=== PATIENT | female | born 1950 | race Caucasian/White ===

== ENCOUNTER → 2016-06-22 | Outpatient (CLI) | payer BC ==
[~2016-06-22] MED LIST: DULO30CA2 PO
[2016-06-22 14:58] LABS: BASO % 0 % (0-3); EOS % 1 % (0-3); HEMATOCRIT 39.3 % (36.0-47.0); HEMOGLOBIN 13.1 g/dL (12.0-15.5); LYMPH # 2.2 x10^3/uL (1.0-4.8); LYMPH % 31 % (24-48); MEAN CORPUSCULAR HEMOGLOBIN 30 pg (25-35); MEAN CORPUSCULAR HGB CONC 33 g/dL (31-37); MEAN CORPUSCULAR VOLUME 90 fL (79-100); MONO % 9 % (0-9); NEUT % 59 % (31-73); PLATELET COUNT 242 x10^3/uL (140-400); RED BLOOD COUNT 4.35 x10^6/uL (3.50-5.40); RED CELL DISTRIBUTION WIDTH 13.4 % (11.5-14.5); WHITE BLOOD COUNT 7.2 x10^3/uL (4.0-11.0)
[2016-06-22 15:18] LABS: ALBUMIN 3.6 g/dL (3.4-5.0); ALBUMIN/GLOBULIN RATIO 1.1 (1.0-1.7); CALCIUM 8.9 mg/dL (8.5-10.1); CREATININE 0.8 mg/dL (0.6-1.0); GFR 72.2; POTASSIUM 3.9 mmol/L (3.5-5.1); TOTAL BILIRUBIN 0.3 mg/dL (0.2-1.0); TOTAL PROTEIN 6.8 g/dL (6.4-8.2)
== END | disposition home or self-care (01) ==
LOC: SURGPAT 13:32
PROVIDERS: ATTEND Neurological Surgery
DX: Z01.812 Encounter for preprocedural laboratory examination (principal)
CPT/HCPCS: 36415; 80053; 85027; 87641

== ENCOUNTER 2016-06-29 05:58 | Observation (INO) | payer BC ==
--- NOTE | 2016-06-28 00:51 | PREOP HP ---
Andres Tee RN dictating for Dr. Sigifredo Aly. DATE OF SURGERY: 06/29/2016 HISTORY OF PRESENT ILLNESS: The patient is a pleasant 66-year-old who is having difficulty with numbness and weakness in her right leg. She said that she has fallen. She said that the problem began in 2010 and has been gradually worsening. Pain is not particularly a problem. The principal issue is regarding her left distal leg and foot. She says she noticed diffuse weakness in her leg and foot drop, which is worse when she is tired. In the morning, she says she feels as though her strength is better and as the day goes on she worsens. I do believe she was seen by neurology who felt that her problem was proximal to the fibular head. PAST MEDICAL HISTORY: No medical history. PAST SURGICAL HISTORY: Lumbar surgery 2005. FAMILY HISTORY: Cancer, hypertension. 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 . Nonsmoker. Does not drink alcohol. ALLERGIES: No known drug allergies. CURRENT MEDICATIONS: Cymbalta. REVIEW OF SYSTEMS: A 12-point review of systems was obtained and is noncontributory except for that mentioned above. PHYSICAL EXAMINATION: NEUROSURGERY EXAMINATION: GENERAL APPEARANCE: Alert, pleasant, no acute distress. HEAD: Normocephalic and atraumatic. SKIN: Warm and dry. MUSCULOSKELETAL: Lumbar paraspinal muscle bulk is normal, restricted range of motion of lumbar spine, etej-oq-oozlcjxw tenderness of lower lumbar spine with palpation, normal range of motion of the lower extremities bilaterally. EXTREMITIES: No clubbing, cyanosis, or edema. NEUROLOGIC: Alert and oriented x 3, normal recent and remote memory, strength 5/5 in bilateral lower extremities except there is weakness of dorsiflexion on the right side, sensory was intact to light touch in the lower extremities bilaterally except for decrease with light touch involving the lateral leg and dorsum of the right foot, reflexes were present and symmetric in bilateral lower extremities, negative straight leg raising bilaterally, normal gait. IMAGING: I reviewed a lumbar MRI scan. On that study, there appears to be compression spinal cord from primarily a dorsal lateral position at T11-12. There is T2 hypersensitivity within the cord at this level. ASSESSMENT/ PLAN: I believe the problem at T11-12 is responsible for her weakness. My recommendation is that she undergo lumbar laminectomy at this level to fully decompress the region and see if we can obtain some improvement in her condition. I did discuss this with her in detail. I further explained that this may not help. She understands surgery and the risks. She would like to go ahead. SIGIFREDO ALY MD DR: ANTONETTE/adolfo JOB#: [id number] / [id number] TERESA
[2016-06-29] VITALS (11 sets, daily range): BP systolic 93–112; BP diastolic 50–63
[~2016-06-29] VITALS: Ht 165.1 cm; Wt 87.1 kg
[2016-06-29] MEDS ORDERED: VANCOMYCIN 1GM IVPB FOR OMNI 250 ML IV ONE (06:00)
[2016-06-29] MEDS ORDERED: GELATIN SPONGE SIZE 100. ONE (06:44)
[2016-06-29] MEDS ORDERED: KETOROLAC 60 MG/2 ML SYRINGE FOR OR. ONE (06:44)
[2016-06-29] MEDS ORDERED: BUPIVAC MPF-EPI 0.5%-1:200000 30 ML VIAL. ONE (06:44)
[2016-06-29] MEDS ORDERED: THROMBIN 20,000 UNIT SPRAY.SYRN KIT TP ONE (06:44)
[2016-06-29] MEDS ORDERED: ONDANSETRON PF 4 MG/2 ML VIAL. IV PRN ×2 (07:00→13:15)
[2016-06-29] MEDS ORDERED: IV RINGERS,LACTATED 1000ML 1,000 ML IV SCH (07:00)
[2016-06-29] MEDS ORDERED: HYDROMORPHONE 2 MG/ML VIAL. IV PRN (07:00)
[2016-06-29] MEDS ORDERED: FENTANYL PF 100 MCG/2 ML VIAL. IV PRN ×3 (07:00→13:15)
[2016-06-29] MEDS ORDERED: PROCHLORPERAZINE 10 MG/2 ML VIAL. IV PRN (07:00)
[2016-06-29] MEDS ORDERED: LIDOCAINE 1% 1 ML SYRINGE. ID PRN (07:00)
[2016-06-29] MEDS ORDERED: MORPHINE SULFATE 2 MG/ML DISP.SYRIN. IV PRN (07:00)
--- NOTE | 2016-06-29 07:52 | RAD ---
Indication: Thoracic stenosis. Axial imaging through the lower thoracic and lumbar spine was performed without contrast. Sagittal and coronal reformations were also performed. Curvature and alignment is normal. The vertebral body heights are well-maintained. No acute compression fracture is detected. Generalized degenerative disc disease is identified in the lower thoracic and lumbar spine with variable disc space narrowing and marginal osteophyte formation. Evaluation of the integrity of the central canal is difficult on nonmyelographic CT. There does appear to be suggestion of central stenosis at the T11-12 level due to a combination of facet changes as well as broad-based disc/osteophyte complex. There also appears to be significance central canal stenosis L4-5 level due to broad-based disc/osteophyte complex and ligamentous thickening as well as hypertrophic facet changes. The paraspinous tissues are unremarkable. Impression: Generalized lower thoracic and lumbar spondylosis. No acute compression fracture is seen. There appears to be central canal stenosis T11-12 as well as L4-5 levels. MRI may be useful for further evaluation, if clinically indicated. PQRS Compliance Statement: One or more of the following individualized dose reduction techniques were utilized for this examination: 1. Automated exposure control 2. Adjustment of the mA and/or kV according to patient size 3. Use of iterative reconstruction technique
[2016-06-29] MEDS ORDERED: ONDANSETRON PF 4 MG/2 ML VIAL. ONE (07:57)
[2016-06-29] MEDS ORDERED: DEXAMETHASONE SOD PHOS 20 MG/5 ML VIAL. ONE (07:57)
[2016-06-29] MEDS ORDERED: FENTANYL PF 100 MCG/2 ML VIAL. ONE (07:57)
[2016-06-29] MEDS ORDERED: REMIFENTANIL 2 MG VIAL. IV ONE (07:57)
[2016-06-29] MEDS ORDERED: ROCURONIUM 50 MG/5 ML VIAL. ONE (07:57)
[2016-06-29] MEDS ORDERED: LIDOCAINE 2% 100 MG/5 ML DISP.SYRIN. ONE (07:57)
[2016-06-29] MEDS ORDERED: PROPOFOL 20 ML IV ONE (07:57)
[2016-06-29] MEDS ORDERED: PROPOFOL 50 ML IV ONE ×3 (07:57→12:02)
[2016-06-29] MEDS ORDERED: MIDAZOLAM HCL 2 MG/2 ML VIAL. ONE (07:58)
[2016-06-29] MEDS ORDERED: PHENYLEPHRINE 10 MG/ML VIAL. ONE (08:02)
[2016-06-29] MEDS ORDERED: SCOPOLAMINE 1.5MG PATCH. TD ONE ×3 (08:05→08:15)
[2016-06-29] MEDS ORDERED: GLYCOPYRROLATE 1 MG/5 ML VIAL. ONE (09:01)
[2016-06-29] MEDS: BACITRACIN 50,000 UNIT in IV NORMAL SALINE 1000ML BAG 1,000 ML IRR ONE ×2 (09:39→10:04)
[2016-06-29] MEDS ORDERED: EPHEDRINE PF IN SALINE 50 MG/5 ML DISP.SYRIN. IV ONE (10:27)
[2016-06-29] MEDS ORDERED: FAMOTIDINE 20 MG/2 ML VIAL ONE (10:27)
[2016-06-29] MEDS ORDERED: REMIFENTANIL 1 MG VIAL. IV ONE (12:12)
[2016-06-29] MEDS ORDERED: 0.9 % SODIUM CHLORIDE 50 ML VIAL. IJ ONE (12:13)
[2016-06-29] MEDS ORDERED: DESFLURANE > 120 MINUTES IH ONE (12:57)
[2016-06-29] MEDS ORDERED: NEOSTIGMINE METHYLSULFATE 5 MG/5 ML SYRINGE. ONE (12:58)
[2016-06-29] MEDS ORDERED: CYCLOBENZAPRINE 10 MG TABLET. PO PRN (13:15)
[2016-06-29] MEDS ORDERED: DIPHENHYDRAMINE HCL 25 MG CAPSULE PO PRN (13:15)
[2016-06-29] MEDS ORDERED: ACETAMINOPHEN 325 MG TABLET. PO PRN (13:15)
[2016-06-29] MEDS ORDERED: DIPHENHYDRAMINE 50 MG/ML VIAL IV PRN (13:15)
[2016-06-29] MEDS ORDERED: MAG HYDROX/ALUMINUM HYDROX/SMC 30 ML ORAL.SUSP PO PRN (13:15)
[2016-06-29] MEDS ORDERED: HYDROCODONE/APAP 7.5/325MG TABLET. PO PRN (13:15)
[2016-06-29] MEDS ORDERED: CALCIUM CARBONATE 500 MG TAB.CHEW PO PRN (13:15)
[2016-06-29] MEDS ORDERED: ZOLPIDEM 5 MG TABLET. PO PRN (13:15)
[2016-06-29] MEDS ORDERED: MAGNESIUM HYDROXIDE 2,400 MG/30 ML ORAL.SUSP. PO PRN (13:15)
[2016-06-29] MEDS ORDERED: 0.9 % SODIUM CHLORIDE 10 ML DISP.SYRIN. IV PRN (13:15)
[2016-06-29] MEDS: FENTANYL PF 100 MCG/2 ML VIAL. IV PRN ×2 (13:47→14:03)
[2016-06-29] MEDS: POTASSIUM CL 20MEQ D5-0.45NACL 1,000 ML IV SCH (15:00)
[2016-06-29] MEDS: DOCUSATE SODIUM 100 MG CAPSULE PO SCH (22:05)
[2016-06-29] MEDS: HYDROCODONE/APAP 7.5/325MG TABLET. PO PRN ×3 (22:06→23:23)
[2016-06-30 03:00] VITALS: BP 102/60
[2016-06-30] MEDS: POTASSIUM CL 20MEQ D5-0.45NACL 1,000 ML IV SCH (04:20)
[2016-06-30 06:35] VITALS: BP 93/55
[2016-06-30] MEDS: DOCUSATE SODIUM 100 MG CAPSULE PO SCH (08:16)
[2016-06-30] MEDS ORDERED: DULOXETINE HCL 30 MG CAPSULE.DR. PO SCH (09:00)
--- NOTE | 2016-06-30 11:07 | DISCH ---
DISCHARGE INSTRUCTIONS Condition on Discharge Condition on Discharge: Stable Activity After Discharge Activity Instructions for Disc: Activity as tolerated, Avoid exertion Other activity instructions: no driving for a week Bathing Instructions: Shower-keep dressing dry Lifting Instructions after Dis: No heavy lifting, No pulling or pushing, Do not lift >10 pounds Diet after Discharge Additional Diet Restrictions: resume home diet Wound Incision Care Wound/Incision Care: Ice to area for comfort Other wound/incision instructi: may remove dressing in 48 hrs if dry then may shower- no soaking Contacting the [facility] after DC Call your doctor for: Concerns you may have Follow-Up Follow up with: Dr. Fan in 2 weeks [phone] Treatment/Equipment after DC Adaptive Equipment Issued: ALLYN Wright MD Jun 30, 2016 11:07
[2016-06-30] MEDS ORDERED: CYCL10TA2 PO (11:10)
[2016-06-30] MEDS ORDERED: DOCU-27 PO (11:10)
[2016-06-30] MEDS ORDERED: HYDR-2762 PO (11:10)
[2016-06-30 12:01] VITALS: BP 98/48
--- NOTE | 2016-07-02 15:19 | PATHOLOGY ---
PATHOLOGY REPORT * * * * * * * * FINAL DIAGNOSIS: A. Segments of bone and fibroadipose tissue, thoracic 12 biopsy: - Focal recent hemorrhage and crush artifactual changes. B. Segments of fibrocartilaginous, fibroadipose, and skeletal muscle tissue and bone, thoracic decompression: - Degenerative changes of fibrocartilaginous tissue. COMMENT: Sections of the thoracic 12 biopsy reveal a few minute segments of bone and fibroadipose tissue showing focal recent hemorrhage. The segments of bone focally contain hematopoietic cellular elements which show crush artifactual changes. There is no evidence of malignancy. (JPM:mgdenise; d/t: 07/02/16) REPORT ELECTRONICALLY SIGNED BY: Eitan Augustine M.D. DATE/TIME: 07/02/2016 15:18 * * * * * * * * GROSS PATHOLOGY: A. The specimen is received in formalin labeled "Lashonda Yarbrough thoracic 12 biopsy". Received are multiple minute fragments of pink-corrales possible bone measuring 0.3 x 0.3 x 0.1 cm in aggregate dimensions. The specimen is filtered and entirely submitted in cassette A1, following light decalcification. B. Received in formalin labeled "Lashonda Yarbrough, thoracic decompression" are multiple segments of corrales, rubbery, and gritty tissue admixed with bone. The specimen measures 7.2 x 6.8 x 1.2 cm in aggregate dimensions. The tissue is submitted representatively in cassette B1 B1, following decalcification. (CAA; 06/29/2016) INITIAL CPT CODE(S): A; 93963, 20741 B; 98377, 60835 Professional services performed [place] [facility] [place] [address] Technical services performed by [facility] at [address] [place] [address], [address] [address]. SPECIMEN(S) RECEIVED: A.Thoracic 12 biopsy B.Thoracic decompression CLINICAL HISTORY: Thoracic stenosis PATIENT: LASHONDA YARBROUGH /AGE: 106/06/1950 (Age: 66) PATIENT #: [id number] ALT CASE #: SPECIMEN COLLECTION DATE: 06/29/2016 SPECIMEN RECEIVED DATE: 06/29/2016 [facility] - [address] [place] [address] - PHONE: [phone] * * * END OF REPORT * * *
--- NOTE | 2016-07-12 02:07 | OP ---
DATE OF SURGERY: 06/29/2016 PREOPERATIVE DIAGNOSES: 1. 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 2. T12 bone lesion. POSTOPERATIVE DIAGNOSES: 1. 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 2. T12 bone lesion. OPERATION PERFORMED: 1. Thoracic laminectomy T11-T12 with decompression of the spinal cord. 2. T12, the bone lesion biopsy. The operation was done with multimodality electrophysiologic monitoring, fluoroscopy, BrainLAB guidance, microscopy. SURGEON: Sigifredo Aly M.D. OPERATIONAL RISK ANALYST: AL Bolaños, who assisted with the decompression, biopsy and closure. OPERATIVE INDICATIONS: The patient is a very pleasant 66-year-old woman who developed significant problems with her lower extremities, primarily on the right side. On imaging studies, she was found to have compression of the distal spinal cord at T11-T12 with evidence of myelomalacia or edema within the cord and additionally T12 atypical lesion was seen within the vertebral body. I recommended a laminectomy at T11-T12 to decompress the spinal cord for her neurologic deterioration and also to biopsy the abnormality in T12. She understood the surgery and the risks, the technique and wished to go ahead. DESCRIPTION OF PROCEDURE: Following general endotracheal anesthesia, the patient was positioned prone on the Rafa table. Her thoracolumbar region was then prepped and draped in the standard fashion. SHORTY hose and AV impulse boots were applied for DVT prophylaxis. A microscope was draped. Fluoroscopy was draped and brought into field. Monitoring was established. Ancef 2 grams was given less than 1 hour prior to initiation of the surgery. Using fluoroscopic guidance, the spinous processes of T10, T11, T12, L1 were exposed and the BrainLAB star was attached spinous process of L1 and the BrainLAB system was initialized. During this time, I elected to place self-retaining retractors and exposed the spinous processes and lamina of T11 and T12. I then brought in the microscope and using rongeurs removed the spinous process and the high speed air drill was used to thin down the bone bilaterally at T11, T12 and then I used a small Kerrison's as well as the high speed air drill to the lift the lamina of T11 and T12 and fully decompressed the entire region. I did trim away very thickened ligamentum flavum and found thickened hypertrophic and partially calcified ligamentum flavum and hypertrophic facet as a primary problem for the posterolateral compression at this region. There was significant compression and the reason I thinned the bone with a high speed air drill and then grasped and gently peeled this material back with the blunt hook and also with 2 mm micro Kerrison's. Once the region was fully decompressed, then I went down to the T12 body on the right side and passed a biopsy needle down through the pedicle of T12 and then using the Thoora system, taken to the position of the abnormality seen on the imaging studies, I passed a biopsy forcep down along this path and then took several biopsies from this region, which I sent for permanent section. I used a small amount of bone wax to seal the opening in the pedicle and fully irrigated the entire region at this point, then I had an excellent decompression of the dura and spinal cord. Hemostasis was excellent. I did lay a small piece of Gelfoam in each lateral gutter and then removed the retractors and irrigated, obtained hemostasis in the muscle. I then closed the muscle and fascia in separate layers and subcutaneous tissue was also closed in a separate layer and the skin was closed with skin shala. The operation went very well and the patient was awakened uneventfully, taken to recovery room in excellent condition with unchanged strength in her lower extremities. I was quite pleased with the surgery. SIGIFREDO ALY MD DR: ANTONETTE/adolfo JOB#: [id number] / [id number] TERESA
== END 2016-06-30 13:20 | disposition home or self-care (01) ==
LOC: SURG 05:58 → 4 SOUTHEST 13:30
PROVIDERS: ADMIT Neurological Surgery; ATTEND Neurological Surgery
DX: S24.104A Unspecified injury at T11-T12 level of thoracic spinal cord, initial encounter (principal); W19.XXXA Unspecified fall, initial encounter; Y93.89 Activity, other specified; Y92.89 Other specified places as the place of occurrence of the external cause; Y99.8 Other external cause status; Z82.49 Family history of ischemic heart disease and other diseases of the circulatory system
CPT/HCPCS: 63003; 72131; 76000; 88304; 88307; 88311; 96374; 97162; 97530; G0378; G0379; G8978; G8979; G8980; J0780; J1100; J1885; J2250; J2405; J2704; J2710; J3010; J3370; J3490; J7030; J7120; S0028

== ENCOUNTER → 2016-11-16 | Outpatient (CLI) | payer BC ==
[~2016-11-16] MED LIST changes: +CYCL10TA2 PO; +DOCU-109 PO; +GADOBUTROL 10 MMOL/10 ML VIAL IV ONE; +HYDR-2762 PO
--- NOTE | 2016-11-16 11:58 | KCIC ---
MRI Thoracic Spine without and with contrast History: Thoracic stenosis and mass, previous surgery Technique: Multiplanar, multisequential pre and postcontrast MR imaging was performed of the thoracic spine. Contrast: 8 cc Gadavist Comparison: June 01, 2016 Findings: There is again abnormal T2 and STIR hyperintense signal of the cord at the superior aspect of T12 which has a more defined appearance on this exam although similar in size, up to approximately 9 to 10 mm CC. This is not associated with significant enhancement. There has been interval posterior decompression at T11-12, spinal canal now adequate at this level. No new thoracic cord signal abnormality or enhancement is identified. Thoracic vertebral body stature is preserved. There is again T1 and T2 hypointense lesion of the T12 vertebral body not associated with appreciable enhancement, measures up to 14 mm AP which is similar. There is again negligible anterior spondylolisthesis at T10-T11 and T11-T12. Thoracic vertebral body stature is maintained. There is no new significant thoracic spinal stenosis. There is at least moderate right and zpxa-vg-oqtockjz left T10-T11 neural foramina are compromise by facets. There is mild amorphous edema associated with the facet articular processes at T10 and T11 likely reactive/degenerative in etiology. There is again mild degenerative disc disease greatest at T10-11 and T11-12. Impression: 1. There has been interval posterior decompression at T11-12, spinal canal adequate at this level. There is persistent nonenhancing T2 and STIR hyperintense signal abnormality of the cord centered at the superior aspect of T12, more defined appearance although size is similar. Findings are most suggestive of myelomalacia. 2. Nonspecific marrow lesion of the T12 vertebral body is stable. 3. There is bilateral T10-T11 neural foramina compromise by facet. There is mild degenerative disc disease greatest at T10-11 and T11-12. Electronically signed by: Abel Peters MD (11/16/2016 11:54 AM)
== END | disposition home or self-care (01) ==
LOC: KCIC MRI 10:01
PROVIDERS: ATTEND Neurological Surgery
DX: M51.34 Other intervertebral disc degeneration, thoracic region (principal); R22.2 Localized swelling, mass and lump, trunk
CPT/HCPCS: 72157; A9585

== ENCOUNTER → 2017-05-21 | Outpatient (CLI) | payer BC ==
--- NOTE | 2017-05-21 11:14 | KCIC ---
MRI Thoracic Spine without and with contrast History: Mass follow-up after surgery Technique: Multiplanar, multi sequential pre and postcontrast MR imaging was performed of the thoracic spine. Contrast: 8 cc Gadavist Comparison: November 16, 2016 Findings: There again has been posterior decompression at the T11-12 level. Vertebral body stature is preserved. There is similar very minimal anterior spondylolisthesis at T10-T11 and T11-12. There is again nonenhancing T2 and STIR hyperintense signal of the cord at the T12 level which is unchanged in appearance, up to 10 mm CC. There is no new enhancement of the thoracic spinal canal. There is no new enhancement in the intervertebral disc spaces. T1 and T2 hypointense lesion of the T12 vertebral body is unchanged morphology and size up to 14 mm AP, no associated enhancement. There is no new significant thoracic spinal stenosis. There are minimal posterior bulges at T10-T11 and T11-12. There is again at least moderate right and boej-pw-abiardyh left T10-T11 neural foramina compromise primarily from facets, mild narrowing on the right at T11-12. There is again mild degenerative disc disease T10-11 T11-12, mild disc desiccation at more superior levels. Impression: 1. Findings are stable compared with the November 2016 exam. There again has been posterior decompression at T11-12. Nonenhancing cord signal abnormality at the T12 level is unchanged, probably due to myelomalacia. Nonspecific marrow lesion of the T12 vertebral body is stable. 2. There is again bilateral T10-T11 neural foramina compromise. Electronically signed by: Abel Peters MD (05/21/2017 11:11 AM) [id number]
== END | disposition home or self-care (01) ==
LOC: KCIC MRI 09:59
PROVIDERS: ATTEND Neurological Surgery
DX: M51.34 Other intervertebral disc degeneration, thoracic region (principal); M43.14 Spondylolisthesis, thoracic region; G95.89 Other specified diseases of spinal cord
CPT/HCPCS: 72157; A9585